=== PATIENT | female | born 1970 | race Caucasian/White ===

== ENCOUNTER 2018-01-14 11:48 | Outpatient (CLI) | payer SELFPAY ==
--- NOTE | 2018-01-14 12:52 | CT ---
CT ABDOMEN AND PELVIS WITHOUT CONTRAST: HISTORY: Calculus of kidney. Blood in the urine. FINDINGS: Absence of oral and IV contrast reduce the sensitivity for the exam, particularly for evaluation of s olid organs involved. The lung bases are clear. No free air or free fluid is seen in the abdomen or pelvis. The patient i s post cholecystectomy. No calculi are seen in the kidneys, left ureter, or urinary bladder. There is a 4 mm calculus in the right distal ureter, proximal to the UVJ, with mild ipsilateral ureteral di latation. No lissy hydronephrosis is seen. There is sigmoid diverticulosis. The uterus is present. No evidence of aneurysmal dilatation of the abdominal aorta is seen. No acute osseous abnormalities are identified. IMPRESSION: 1. A 4 mm right distal ureteral calculus. 2. Sigmoid diverticulosis. POS: [facility]
== END 2018-01-14 11:49 | disposition home or self-care (01) ==
LOC: RAD-BREN 11:48
PROVIDERS: ATTEND Internal Medicine
CPT/HCPCS: 74176